=== PATIENT | male | born 1950 ===

== ENCOUNTER 2017-07-28 14:13 | Observation (INO) ==
[2017-07-28] MEDS ORDERED: MAGNESIUM SULF RIDER 4 GM in PREMIX 1 EACH IV PRN (15:11)
[2017-07-28] MEDS ORDERED: ZALEPLON 5 MG CAPSULE PO PRN (15:11)
[2017-07-28] MEDS ORDERED: ACETAMINOPHEN 325 MG TABLET PO PRN (15:11)
[2017-07-28] MEDS ORDERED: DOCUSATE SODIUM 100 MG CAPSULE PO PRN (15:11)
[2017-07-28] MEDS ORDERED: POTASSIUM CHLORIDE 20 MEQ TABLET PO PRN (15:11)
[2017-07-28] MEDS ORDERED: ONDANSETRON 4 MG/2 ML VIAL IV PRN (15:11)
[2017-07-28] MEDS ORDERED: MAGNESIUM SULF RIDER 2 GM in PREMIX 1 EACH IV PRN (15:11)
--- NOTE | 2017-07-28 17:23 | Cardiology History & Physical ---
Assessment and Plan - Time spent with patient Time spent with patient: Greater than 30 minutes (1) LV (left ventricular) mural thrombus Status: Acute Assessment and plan: SEE PLAN OF CARE LISTED BELOW. Current Visit: Yes (2) Nonischemic cardiomyopathy Status: Chronic Assessment and plan: SEE PLAN OF CARE LISTED BELOW. Current Visit: Yes (3) History of congestive heart failure Status: Chronic Assessment and plan: SEE PLAN OF CARE LISTED BELOW. Current Visit: No (4) History of pulmonary embolus (PE) Status: Chronic Assessment and plan: SEE PLAN OF CARE LISTED BELOW. Current Visit: No (5) History of DVT (deep vein thrombosis) Status: Chronic Assessment and plan: SEE PLAN OF CARE LISTED BELOW. Current Visit: No (6) History of TIA (transient ischemic attack) Status: Resolved Assessment and plan: SEE PLAN OF CARE LISTED BELOW. Current Visit: No (7) Former smoker Status: Resolved Assessment and plan: SEE PLAN OF CARE LISTED BELOW. Current Visit: No (8) Dyslipidemia Status: Chronic Assessment and plan: SEE PLAN OF CARE LISTED BELOW. Current Visit: Yes (9) Diabetes mellitus Status: Chronic Assessment and plan: SEE PLAN OF CARE LISTED BELOW. Current Visit: Yes (10) Hypertension Status: Chronic Assessment and plan: SEE PLAN OF CARE LISTED BELOW. Current Visit: No History of Present Illness Chief complaint: Left ventricular thrombus History of present illness: Skilled Labor: Dr. Dodd PCP: [facility] Mr. Mccann is a 67 year old male without history of coronary artery disease, routinely followed by Dr. Dodd. Patient has cardiac risk factors significant for diabetes, hypertension, dyslipidemia, sedentary lifestyle and former smoker. He has a past medical history of nonischemic cardiomyopathy ( ejection fraction 20%). Heart catheterization was performed in 2010, which did not reveal any evidence of significant fixed coronary obstruction. Ischemic cardiomyopathy was diagnosed at that time with ejection fraction of 15%. Patient's most recent echocardiogram was performed October 2016 which revealed improved EF of 20%. Patient has refused ICD placement. Patient was directly admitted to our facility from [facility] this afternoon for incidental finding of LV thrombus on echocardiogram. Per patient report, he was hospitalized at [facility] for acute on chronic CHF exacerbation. His congestive heart failure pills to be well compensated at this time. He reports that he was diuresed well and his breathing is now back to baseline. He denies any chest pain, heaviness or tightness. Denies fever, chills, cough, abdominal pain, nausea, vomiting, melena dyspnea, orthopnea, PND , lower extremity swelling and AGUILA. Patient has been admitted under cardiology service. Patient housed on the telemetry unit. Patient was seen and examined on the telemetry unit. He is without complaints. Denies chest pain, heaviness and tightness. Labs are pending. Chronicity of patient's LV thrombus is unknown at this time. Echocardiogram has been ordered. There is no evidence of LV thrombus on patient's last echocardiogram October 2016. Echocardiogram will be repeated this hospitalization. Patient received therapeutic dose of Lovenox at [facility]. Will await echocardiogram results and make further recommendations at that time. Further plan and addendum to follow per Dr. Helton. ASSESSMENT/PLAN 1. LV THROMBUS- Chronicity of this is unknown. There is no evidence of LV thrombus on patient's last echocardiogram October 2016. Echocardiogram will be repeated this hospitalization. Patient received therapeutic dose of Lovenox at [facility]. Will await echocardiogram results and make further recommendations at that time. 2. NONISCHEMIC CARDIOMYOPATHY - Most recent ejection fraction 20% in October 2016 per echocardiogram. Patient has refused ICD placement. 3. HISTORY OF CONGESTIVE HEART FAILURE - Patient appears to be well compensated at this time. Continue current plan of care. Chest x-ray in the morning. 4. HISTORY OF PULMONARY EMBOLISM - Clinically stable. Can consider switching Blood thinner from Plavix to NOAC like Eliquis as this will provide better stroke prevention as well as DVT and PE prophylaxis. 5. HISTORY OF DVT - Clinically stable. Can consider switching Blood thinner from Plavix to NOAC like Eliquis as this will provide better stroke prevention as well as DVT and PE prophylaxis. 6. HYPERTENSION - Under well control. Will continue patient's home medications when they are verified by nursing staff. 7. DIABETES - Sliding still insulin has been initiated. Accu-Cheks before meals and at bedtime. 8. DYSLIPIDEMIA - Continue lipid-lowering agent. Lipid panel in the morning. 9. FORMER SMOKER - Reports that he quit approximately 1 year ago. 10. HISTORY OF TIA - Continue ASA and Plavix Home Medications Medication Instructions Recorded Confirmed Type Carvedilol [Coreg] 3.125 mg PO BID tablet 07/06/15 08/27/16 Rx Clopidogrel [Plavix] 75 mg PO DAILY #30 tablet 07/06/15 08/27/16 Rx Aspirin [Ecotrin] 81 mg PO DAILY 08/02/16 08/27/16 History Furosemide [Furosemide] 1 tablet PO DAILY 08/08/16 08/27/16 History Simvastatin 20 mg PO DAILY 08/08/16 08/27/16 History glipiZIDE [Glipizide] 1 tablet PO BID 08/08/16 08/27/16 History Albuterol Sulfate [Albuterol Neb] 2.5 mg RESP TX Q4H PRN 08/27/16 08/27/16 History Allergies Allergy/AdvReac Type Severity Reaction Status Date / Time No Known Allergies Allergy Verified 07/04/15 16:33 - Constitutional Constitutional: Present: as per HPI. Absent: chills, fatigue, fever(s), lethargy, malaise, weakness - Cardiovascular Cardiovascular: Present: as per HPI. Absent: chest pain at rest, chest pain with activity, claudication, diaphoresis, dyspnea, dyspnea on exertion, edema, radiating jaw, neck or arm pain, orthopnea, palpitations, PND - Respiratory Respiratory: Present: as per HPI. Absent: cough, dyspnea, hemoptysis, dyspnea on exertion, wheezing, pain on inspiration, change in phlegm color - Gastrointestinal Gastrointestinal: Present: as per HPI. Absent: abdominal pain, coffee ground emesis, heartburn, hematemesis, hematochezia, melena, nausea, vomiting - Neurological Neurological: Present: as per HPI. Absent: abnormal gait, abnormal speech, behavioral changes, dizziness, frequent falls, numbness, syncope Medical,Surgical,& Family Hx - Medical History Cardio: History of: CHF, Hypertension, Cardiovascular Problems (Cardiomyopathy) Neurology: History of: Seizures, TIA HEENT: History of: Eye Problem (left eye slightly blind) Endocrine: History of: Diabetes Mellitus (NIDDM), Dyslipidemia Respiratory: History of: Pulmonary Embolism - Surgical History Cardiac Surgeries: Sugical HX of: Cardiac Catheterization (Dr. Dodd - Last visit 1 year ago- Negative workup) - Family History Family History: Reports;: Family Cancer (Mother), Family Diabetes (Sister), Family Heart Disease, Family Hypertension (Sister), Family Stroke - Social History Smoking Status: Former smoker Frequency of Alcohol Use: None Type of Drug Use: None Lives With:: Alone Functional capacity: independent ambulation Cardiology Physical Exam - Constitutional Vitals: Vital Signs Pulse Resp BP Pulse Ox 72 18 144/75 99 07/28/17 16:30 07/28/17 16:30 07/28/17 16:30 07/28/17 16:30 Intake and Output 07/28/17 07/28/17 07/28/17 06:59 14:59 22:59 Other: Weight 214 lb Patient Weight 07/29/17 06:59 Weight 214 lb Exam: General: Appears well with no apparent distress. Pleasant and cooperative. Appears comfortable. HEENT: PERRL, normocephalic, atraumatic. Mucous membranes moist. No jaundice noted. Conjunctiva moist and clear, sclerae anicteric Neck: No JVD/HJR, no thyromegaly or lymphadenopathy noted. Cardiac: Regular rate and rhythm. No murmur rub or gallop. Lungs: Mostly clear. Not requiring oxygen. Abdomen: Soft, bowel sounds normoactive. Nontender and nondistended. No abdominal bruit or thrill noted. No masses noted. Extremities: No clubbing, cyanosis noted. No edema noted. Upper extremity pulses 2+. Lower extremity pulses 2+. Capillary refill less than 3 seconds. Skin: No unusual lesions or rashes. No skin breakdown appreciated. Neuro: Awake, alert and oriented 3. Moves all extremities well without hemiparesis or paralysis. No essential tremor is appreciated. Result/EKG - Labs Lab Results: I have reviewed the past 24 hour labs Labs: Laboratory Results - last 24 hr 07/28/17 16:47 POC Glucose 161 H
[2017-07-28] MEDS: ALBUTEROL 2.5 MG/3 ML NEB RESP TX SCH ×3 (18:27→23:39)
--- NOTE | 2017-07-28 20:18 | XRay Report ---
XR chest 2V Indication: Shortness of breath. Comparison: Chest x-ray 03/20/2016. Technique: PA and lateral chest x-ray was performed. Findings: Bilaterally within the lung bases, coarsened reticular interstitial markings are noted with superimposed airspace opacities which are asymmetrically more prominent within the left lung base. Additionally there is a nodular focus of density in the right midlung that could reflect superimposed pulmonary nodule. Heart size is borderline. Bones and soft tissues demonstrate no significant interval change. Impression: 1. The asymmetry of the lung bases suggest atelectasis and/or infectious process. Asymmetric pulmonary edema is not excluded. 2. Pulmonary nodule possibly cavitary within the right mid lung is not excluded. Follow-up is recommended. CT could be considered for further characterization. 07/28/2017 8:12 PM PROCEDURE INTERPRETED AT [facility] DEPARTMENT OF RADIOLOGY Final Report Signed by: Dr. Duane Park
[2017-07-28] MEDS: CARVEDILOL 3.125 MG TABLET PO SCH (21:45)
[2017-07-28] MEDS: INSULIN REGULAR 100 UNIT/ML SUBCUT SCH (21:46)
[2017-07-29] MEDS: ALBUTEROL 2.5 MG/3 ML NEB RESP TX SCH ×3 (04:07→10:44)
[2017-07-29 05:07] LABS: Basophils % 0.5 % (0.0-0.8); Eosinophils # 0.2 10*3/uL (0.0-0.87); Eosinophils % 3.5 % (0.00-10.9); Hematocrit 35.6 VOL% (42.0-52.0); Hemoglobin 12.2 GM/DL (14.0-18.0); Immature Granulocytes % 0.2 %; Immature Granulocytes Absolute 0.01 #; Lymphocytes # 0.9 10*3/uL (1.4-4.0); Lymphocytes % 16.3 % (21.2-54.2); Mean Corpuscular HGB Conc 34.3 GM/DL (32-36); Mean Corpuscular Hemoglobin 30 PG (27-34); Mean Corpuscular Volume 88.1 FL (87-102); Monocytes # 0.7 10*3/uL (0.11-0.8); Monocytes % 11.9 % (1.7-12.7); Neutrophils # 3.8 10*3/uL (1.4-7.4); Neutrophils % 67.6 % (38.7-73.9); Platelet Count 192 T/CUMM (130-400); Red Blood Count 4.04 MC/CUMM (3.8-5.5); Red Cell Distribution Width 12.6 % (9.3-17.3); White Blood Count 5.7 T/CUMM (4-12)
[2017-07-29 05:41] LABS: Albumin 2.6 G/DL (3.4-5.0); Bilirubin,Total 0.5 MG/DL (0.2-1.0); Osmolality,Calculated 289.1 MOS/KG (273-304); Potassium 4.5 MMOL/L (3.5-5.1); Risk Ratio 6.26; Total Protein 5.9 G/DL (6.4-8.3)
[2017-07-29 06:08] LABS: Calcium 8.2 MG/DL (8.5-10.1); Magnesium 2.5 MG/DL (1.8-2.4); Potassium 4.5 MMOL/L (3.5-5.1)
--- NOTE | 2017-07-29 08:01 | EKG Report ---
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
[2017-07-29] MEDS: INSULIN REGULAR 100 UNIT/ML SUBCUT SCH ×2 (08:43→12:53)
[2017-07-29] MEDS ORDERED: ASPIRIN EC 81 MG TABLET PO SCH (09:00)
[2017-07-29] MEDS ORDERED: CLOPIDOGREL 75 MG TABLET PO SCH (09:00)
[2017-07-29] MEDS ORDERED: FUROSEMIDE 40 MG TABLET PO SCH (09:00)
[2017-07-29] MEDS ORDERED: PANTOPRAZOLE 40 MG TABLET PO SCH (09:00)
[2017-07-29] MEDS: CARVEDILOL 3.125 MG TABLET PO SCH (09:12)
--- NOTE | 2017-07-29 09:12 | ECHO Report ---
Gagan Mccann Exam Date: 07/29/2017 07:35 Referring Physician: Technologist: Age: 67 Ht (in): Wt (lb): Gender: M Exam Location: [facility] Echo Indications: BP: / HR: Rhythm: Sinus Technical Quality: Good IMPRESSIONS Mildly dilated severe cardiomyopathy with ejection fraction estimated at 20%. There is global hypokinesis. In some views there is a slight irregularity at the apex and I cannot completely exclude the possibility of left ventricular apical thrombus. Other views show what appears to be a normal left ventricular apex. I reviewed his previous echo from approximately 1 year ago and it has a similar appearance. I do not think this represents a true thrombus, and if it does it appears to be chronic. There is mild left atrial enlargement. Trace mitral regurgitation. Mild aortic insufficiency. Mild tricuspid regurgitation. MEASUREMENTS (Male / Female) Normal Values 2D ECHO LV Diastolic Diameter PLAX 6.1 cm 4.2 - 5.9 / 3.9 - 5.3 cm LV Systolic Diameter PLAX 5.9 cm LV Fractional Shortening PLAX 2.9 % IVS Diastolic Thickness 1.3 cm 0.6 - 1.0 / 0.6 - 0.9 cm LVPW Diastolic Thickness 1.3 cm 0.6 - 1.0 / 0.6 - 0.9 cm RV Internal Dim ED PLAX 3.3 cm Aortic Root Diameter 3.3 cm LA Systolic Diameter LX 4.3 cm 3.0 - 4.0 / 2.7 - 3.8 cm DOPPLER TR Peak Velocity 400.0 cm/s TR Peak Gradient 64.0 mmHg FINDINGS Left Ventricle The left ventricle is mildly dilated with a severely reduced ejection fraction estimated at 20%. There is severe global hypokinesis. In some views there is a slight irregularity at the apex and I cannot completely exclude the possibility of left ventricular apical thrombus. Other views show what appears to be a normal left ventricular apex. I reviewed his previous echo from approximately 1 year ago and it has a similar appearance. I do not think this represents a true thrombus, and if it does it appears to be chronic. Right Ventricle Normal right ventricular size and function. Right Atrium Normal right atrial size and function. Left Atrium There is mild left atrial enlargement. Mitral Valve There is mild mitral leaflet thickening with trace mitral regurgitation. Aortic Valve Mild aortic insufficiency. Tricuspid Valve Structurally normal tricuspid valve. Mild tricuspid regurgitation. Pulmonic Valve Pericardium Normal pericardium. Aorta Not well visualized. Dylan Helton (Electronically Signed) Final Date: 29 July 2017 09:11
--- NOTE | 2017-07-29 10:26 | Discharge Summary ---
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 Dodd PCP: [facility] Mr. Mccann is a 67 year old male without history of coronary artery disease, routinely followed by Dr. Dodd. Patient has cardiac risk factors significant for diabetes, hypertension, dyslipidemia, sedentary lifestyle and former smoker. He has a past medical history of nonischemic cardiomyopathy ( ejection fraction 20%). Heart catheterization was performed in 2010, which did not reveal any evidence of significant fixed coronary obstruction. Ischemic cardiomyopathy was diagnosed at that time with ejection fraction of 15%. Patient's most recent echocardiogram was performed October 2016 which revealed improved EF of 20%. Patient has refused ICD placement. Patient was directly admitted to our facility from [facility] for suspected LV apical thrombus. Patient asymptomatic. Echocardiogram was repeated at our facility. The study was read by Dr. Dylan Helton. It is hard to say whether or not patient has LV apical thrombus on echocardiogram. In some views there is a slight irregularity at the apex and the possibility of left ventricular apical thrombus cannot completely be excluded. However, in other views it appears to be a normal left ventricular apex. When compared to previous echocardiogram one year ago there is no change. At this point, a true thrombus is not suspected. However, if it is in fact present it appears to be chronic. Patient's echocardiogram demonstrated severe cardiomyopathy with ejection fraction at 20%. Global hypokinesis noted. Patient has declined ICD placement again this hospitalization. No overt heart failure this hospitalization, patient is well compensated. Given patient's severe cardiomyopathy, history of pulmonary embolism, history of TIA and history of DVT I think it is reasonable to switch patient from Plavix to Eliquis in order to provide better stroke prevention as well as DVT and PE prophylaxis. This will also treat LV thrombus if it is in fact present. 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 He verbalizes understanding. He is anxious for discharge home. Having felt that he has met maximal medical therapy, he will be discharged home in stable condition. He has been given a follow-up appoint with Dr. Dodd in 1 month with EKG, CBC and BMP. Chest x-ray was performed this hospitalization which revealed pulmonary nodule. Possibly cavitary within the right mid lung cannot excluded. Follow-up is recommended per radiologist. CT can be considered as an outpatient. Patient is asymptomatic. Patient has been given a follow-up appoint with Dr. Brand in 1- 2 weeks. I will defer further management/workup of this to him. Patient will be discharged home with his preadmission home medications with the exception of switching from Plavix to Eliquis. Also, patient simvastatin was increased as LDL was not at goal. Patient will need lipid panel in 4-6 weeks. Patient verbalizes understanding of this. Patient verbalizes understanding of his discharge instructions and discharge medications. - Time spent with patient Time with patient DS: Greater than 30 minutes Diagnosis - Discharge Diagnosis (1) LV (left ventricular) mural thrombus Status: Suspected (2) Nonischemic cardiomyopathy Status: Chronic (3) History of congestive heart failure Status: Chronic (4) History of pulmonary embolus (PE) Status: Chronic (5) History of DVT (deep vein thrombosis) Status: Chronic (6) History of TIA (transient ischemic attack) Status: Chronic (7) Former smoker Status: Resolved (8) Dyslipidemia Status: Chronic (9) Diabetes mellitus Status: Chronic (10) Hypertension Status: Chronic Specialty Discharge - Follow Up or Referrals Follow up with: Marc Dodd MD [Physician] - 1 Month (EKG, BMP AND CBC) Juan Alba MD [Physician] - (Follow-up in 1-2 weeks. Pulmonary nodule noted on chest x-ray. Will defer to Dr. Alba whether patient will need CT chest.) Discharge Plan - Discharge Data Disposition: Disch To Home/Self Care Condition at Discharge: Stable Discharge Diet: heart healthy, low fat, low cholesterol, low salt diet Activity: resume usual activities as tolerated Hygiene: no restrictions Weight Bearing at Discharge: full weight bearing Driving: not until seen by doctor Contact your physician if you experience:: fever over 101, Difficulty voiding, Redness or swelling, Nausea/Vomiting, Shortness of breath, pain uncontrolled by pain medications - Discharge Medications New Carvedilol [Coreg] 3.125 mg PO BID #60 tablet Simvastatin [Zocor] 40 mg PO BEDTIME #30 tablet Apixaban [Eliquis] 5 mg PO BID #60 tablet Continue Aspirin [Ecotrin] 81 mg PO DAILY glipiZIDE [Glipizide] 5 mg PO BID Furosemide 20 mg PO BID Albuterol Sulfate [Albuterol Neb] 2 puffs INH Q4H PRN PRN Reason: Shortness Of Breath/Wheezing Spironolactone [Aldactone] 25 mg PO DAILY Ranitidine Tab [Zantac Tab] 150 mg PO BEDTIME Acetaminophen Tab [Tylenol Tab] 650 mg PO Q6H PRN PRN Reason: Pain Mild (1-3) And/Or Fever Lisinopril 10 mg PO DAILY hydrALAZINE TAB [Apresoline Tab] 50 mg PO BID Potassium Chloride Cap/Tab [K Dur] 10 meq PO BID Insulin Detemir [Levemir] 20 unit SUBCUT BEDTIME Discontinued Carvedilol [Coreg] 3.125 mg PO BID tablet Clopidogrel [Plavix] 75 mg PO DAILY #30 tablet Simvastatin 40 mg PO BEDTIME - Follow Up or Referral Follow Up: Marc Dodd MD [Physician] - 2 Weeks (EKG, BMP AND CBC) - Forms/Instructions Forms: Acute Care Work/School Release Exam - Constitutional Vitals: Period Temp Pulse Resp BP Sys/Lacey Pulse Ox Last 24 Hr 97.6 F-98.2 F 64-92 16-20 122-185/62-89 94-100 Exam: General: Appears well with no apparent distress. Pleasant and cooperative. Appears comfortable. HEENT: PERRL, normocephalic, atraumatic. Mucous membranes moist. No jaundice noted. Conjunctiva moist and clear, sclerae anicteric Neck: No JVD/HJR, no thyromegaly or lymphadenopathy noted. Cardiac: Regular rate and rhythm. No murmur rub or gallop. Lungs: Mostly clear. Not requiring oxygen. Abdomen: Soft, bowel sounds normoactive. Nontender and nondistended. No abdominal bruit or thrill noted. No masses noted. Extremities: No clubbing, cyanosis noted. No edema noted. Upper extremity pulses 2+. Lower extremity pulses 2+. Capillary refill less than 3 seconds. Skin: No unusual lesions or rashes. No skin breakdown appreciated. Neuro: Awake, alert and oriented 3. Moves all extremities well without hemiparesis or paralysis. No essential tremor is appreciated. Discharge Results Procedures and tests throughout hospitalization: Pending Orders 07/30/17 04:00 BMP w/ Mg [Basic Metabolic Panel w/Mg] IN AM CBC [Comp Blood Count Auto Diff] IN AM 07/31/17 04:00 BMP w/ Mg [Basic Metabolic Panel w/Mg] IN AM CBC [Comp Blood Count Auto Diff] IN AM 08/01/17 04:00 BMP w/ Mg [Basic Metabolic Panel w/Mg] IN AM CBC [Comp Blood Count Auto Diff] IN AM Labs on day of discharge: Labs from last 24 hours 07/29/17 07/29/17 07/29/17 08:16 04:00 04:00 WBC RBC Hgb Hct MCV MCH MCHC RDW Plt Count MPV Neut % (Auto) Lymph % (Auto) Garland % (Auto) Eos % (Auto) Baso % (Auto) Neut # (Auto) Lymph # (Auto) Garland # (Auto) Eos # (Auto) Baso # (Auto) Immature Gran % Nucleated RBC % Immature Gran # Nucleated RBCs # Immature Plt Fraction Sodium 143 142 Potassium 4.5 4.5 Chloride 109 H 108 H Carbon Dioxide 31 28 Anion Gap 7.5 10.5 BUN 25 H 23 H Creatinine 1.40 H 1.30 GFR Calculation 65 71 BUN/Creatinine Ratio 17.00 17.00 Glucose 156 H 153 H POC Glucose 150 H Calculated Osmolality 291.0 289.1 Calcium 8.2 L 8.0 L Magnesium 2.5 H Total Bilirubin 0.50 AST 23 ALT 25 Alkaline Phosphatase 93 Total Protein 5.9 L Albumin 2.6 L Globulin 3.3 Albumin/Globulin Ratio 0.7 L Triglycerides 155 H Cholesterol 169 LDL Cholesterol 111.0 VLDL Cholesterol 31.0 HDL Cholesterol 27 L Heart Disease Risk Ratio 6.26 Free T4 TSH 3rd Generation 07/29/17 07/28/17 07/28/17 04:00 19:45 17:01 WBC 5.7 RBC 4.04 Hgb 12.2 L Hct 35.6 L MCV 88.1 MCH 30 MCHC 34.3 RDW 12.6 Plt Count 192 MPV 11.0 Neut % (Auto) 67.6 Lymph % (Auto) 16.3 L Garland % (Auto) 11.9 Eos % (Auto) 3.5 Baso % (Auto) 0.5 Neut # (Auto) 3.8 Lymph # (Auto) 0.9 L Garland # (Auto) 0.7 Eos # (Auto) 0.2 Baso # (Auto) 0.0 Immature Gran % 0.2 Nucleated RBC % 0.0 Immature Gran # 0.01 Nucleated RBCs # 0.00 Immature Plt Fraction 0.0 Sodium Potassium Chloride Carbon Dioxide Anion Gap BUN Creatinine GFR Calculation BUN/Creatinine Ratio Glucose POC Glucose 167 H Calculated Osmolality Calcium Magnesium Total Bilirubin AST ALT Alkaline Phosphatase Total Protein Albumin Globulin Albumin/Globulin Ratio Triglycerides Cholesterol LDL Cholesterol VLDL Cholesterol HDL Cholesterol Heart Disease Risk Ratio Free T4 TSH 3rd Generation 1.380 07/28/17 07/28/17 17:01 16:47 WBC RBC Hgb Hct MCV MCH MCHC RDW Plt Count MPV Neut % (Auto) Lymph % (Auto) Garland % (Auto) Eos % (Auto) Baso % (Auto) Neut # (Auto) Lymph # (Auto) Garland # (Auto) Eos # (Auto) Baso # (Auto) Immature Gran % Nucleated RBC % Immature Gran # Nucleated RBCs # Immature Plt Fraction Sodium Potassium Chloride Carbon Dioxide Anion Gap BUN Creatinine GFR Calculation BUN/Creatinine Ratio Glucose POC Glucose 161 H Calculated Osmolality Calcium Magnesium Total Bilirubin AST ALT Alkaline Phosphatase Total Protein Albumin Globulin Albumin/Globulin Ratio Triglycerides Cholesterol LDL Cholesterol VLDL Cholesterol HDL Cholesterol Heart Disease Risk Ratio Free T4 1.02 TSH 3rd Generation - Imaging and Cardiology Procedure: Ultrasound: report reviewed by me, X-ray: report reviewed by me DS: Provider Date of admission: 07/28/17 15:11 Primary care physician: Monico Guzman MD Attending physician on admission: Dylan Helton MD Discharging clinician: Macey Segura NP
[2017-07-29 12:28] VITALS: BP 136/67
[2017-07-29] MEDS ORDERED: POTASSIUM CHLORIDE 10 MEQ TABLET PO SCH (21:00)
[2017-07-29] MEDS ORDERED: SIMVASTATIN 20 MG TABLET PO SCH ×2 (21:00)
[2017-07-29] MEDS ORDERED: glipiZIDE 5 MG TABLET PO SCH (21:00)
[2017-07-29] MEDS ORDERED: INSULIN GLARGINE 100 UNIT/ML SUBCUT SCH (21:00)
[2017-07-29] MEDS ORDERED: SIMVASTATIN 40 MG TABLET PO SCH (21:00)
[2017-07-29] MEDS ORDERED: FAMOTIDINE 20 MG TABLET PO SCH (21:00)
[2017-07-29] MEDS ORDERED: APIXABAN 5 MG TABLET PO SCH (21:00)
[2017-07-30] MEDS ORDERED: SPIRONOLACTONE 25 MG TABLET PO SCH (09:00)
[2017-07-30] MEDS ORDERED: LISINOPRIL 10 MG TABLET PO SCH (09:00)
== END 2017-07-29 12:52 | disposition home or self-care (01) ==
LOC: INTOOBSV 15:11 → N.TELEN 16:21
PROVIDERS: ADMIT Internal Medicine Cardiovascular Disease; ATTEND Internal Medicine Cardiovascular Disease

== ENCOUNTER 2019-07-26 12:07 | Observation (INO) ==
[2019-07-26] MEDS ORDERED: ONDANSETRON 4 MG/2 ML VIAL IV PRN (14:48)
[2019-07-26] MEDS ORDERED: GLUCAGON 1 MG VIAL IM PRN (14:51)
[2019-07-26] MEDS ORDERED: DEXTROSE 50% 25 GM/50 ML VIAL IV PRN (14:51)
[2019-07-26 16:05] LABS: Basophils % 0.2 % (0.0-0.8); Eosinophils # 0.2 10*3/uL (0.0-0.87); Eosinophils % 1.9 % (0.00-10.9); Hematocrit 29.7 VOL% (42.0-52.0); Hemoglobin 9.1 GM/DL (14.0-18.0); Immature Granulocytes % 0.3 %; Immature Granulocytes Absolute 0.03 #; Lymphocytes % 10.4 % (21.2-54.2); Mean Corpuscular HGB Conc 30.6 GM/DL (32-36); Mean Corpuscular Volume 94.9 FL (87-102); Mean Platelet Volume 10.5 FL (9.6-12.0); Monocytes % 8.5 % (1.7-12.7); Neutrophils % 78.7 % (38.7-73.9); Platelet Count 159 T/CUMM (130-400); Red Blood Count 3.13 MC/CUMM (3.8-5.5); Red Cell Distribution Width 13.6 % (9.3-17.3); White Blood Count 9.5 T/CUMM (4-12)
[2019-07-26 16:23] LABS: Albumin 2.7 G/DL (3.4-5.0); Bilirubin,Total 0.7 MG/DL (0.2-1.0); Calcium 7.7 MG/DL (8.5-10.1); Osmolality,Calculated 293.8 MOS/KG (273-304); Total Protein 6.6 G/DL (6.4-8.3)
[2019-07-26] MEDS ORDERED: ALBUTEROL/IPRATROPIUM 3 ML NEB RESP TX PRN (16:42)
[2019-07-26 16:48] LABS: Apearance,Urine CLEAR (Clear); Bacteria,Urine Occasional /HPF (Few); Bilirubin,Urine Negative (Negative); Blood, Urine Negative (Negative); Glucose,Urine (UA) Negative (Negative); Hyaline Casts,Urine 18 /LPF (0-3); Ketones,Urine Negative (Negative); Mucus,Urine Occasional /LPF (Occasional); Nitrite,Urine Negative (Negative); Protein,Urine 100 MG/DL; RBC,Urine 2 /HPF (0-4); Squamous Epithelial Cell,Urine Occasional /HPF (0-10); Urine Color Yellow (Yellow); Urine Specific Gravity 1.012 (1.001-1.035); Urine Urobilinogen < 2.0 EU/DL (0.2-1.0); WBC,Urine 1 /HPF (0-6)
[2019-07-26] MEDS ORDERED: guaiFENesin 200 MG/10 ML UDCUP PO PRN (16:55)
[2019-07-26] MEDS: INSULIN LISPRO 100 UNIT/ML SUBCUT SCH ×2 (17:32→20:16)
[2019-07-26] MEDS: APIXABAN 5 MG TABLET PO SCH (20:16)
[2019-07-26] MEDS: POTASSIUM CHLORIDE 10 MEQ TABLET PO SCH (20:16)
[2019-07-26] MEDS: ACETAMINOPHEN 325 MG TABLET PO PRN (20:16)
[2019-07-26] MEDS: CARVEDILOL 6.25 MG TABLET PO SCH (20:16)
[2019-07-26] MEDS: SIMVASTATIN 40 MG TABLET PO SCH (20:16)
[2019-07-27 05:30] LABS: Basophils % 0.3 % (0.0-0.8); Eosinophils # 0.2 10*3/uL (0.0-0.87); Eosinophils % 3.3 % (0.00-10.9); Hematocrit 28.3 VOL% (42.0-52.0); Immature Granulocytes % 0.3 %; Immature Granulocytes Absolute 0.02 #; Mean Corpuscular HGB Conc 31.8 GM/DL (32-36); Mean Platelet Volume 10.8 FL (9.6-12.0); Monocytes % 11.5 % (1.7-12.7); Neutrophils % 69.6 % (38.7-73.9); Platelet Count 142 T/CUMM (130-400); Red Blood Count 3.01 MC/CUMM (3.8-5.5); Red Cell Distribution Width 13.9 % (9.3-17.3); White Blood Count 6.5 T/CUMM (4-12)
[2019-07-27 06:09] LABS: Albumin 2.6 G/DL (3.4-5.0); Bilirubin,Total 0.6 MG/DL (0.2-1.0); Calcium 7.9 MG/DL (8.5-10.1); Osmolality,Calculated 293.8 MOS/KG (273-304); Risk Ratio 2.74; Thyroid Stimulating Hormone 1.35 uIU/ml (0.358-3.74); Total Protein 6.4 G/DL (6.4-8.3); VLDL CHOLESTEROL 11.2 MG/DL
[2019-07-27] MEDS: PANTOPRAZOLE 40 MG TABLET PO SCH (08:31)
[2019-07-27] MEDS: LISINOPRIL 10 MG TABLET PO SCH (08:31)
[2019-07-27] MEDS: CARVEDILOL 6.25 MG TABLET PO SCH ×2 (08:31→16:14)
[2019-07-27] MEDS: SPIRONOLACTONE 25 MG TABLET PO SCH (08:31)
[2019-07-27] MEDS: prednisoLONE 15 MG/5 ML ORAL.SYR PO SCH (08:32)
[2019-07-27] MEDS: FUROSEMIDE 20 MG/2 ML VIAL IV SCH (08:33)
[2019-07-27] MEDS: APIXABAN 5 MG TABLET PO SCH ×2 (08:47→21:28)
[2019-07-27] MEDS: POTASSIUM CHLORIDE 10 MEQ TABLET PO SCH ×2 (08:47→21:28)
[2019-07-27] MEDS: INSULIN LISPRO 100 UNIT/ML SUBCUT SCH ×4 (10:25→21:34)
[2019-07-27] MEDS: POLYETHYLENE GLYCOL POWDER 17 GM PACK PO SCH (10:25)
[2019-07-27] MEDS: ALBUTEROL/IPRATROPIUM 3 ML NEB RESP TX SCH ×3 (11:10→19:20)
[2019-07-27] MEDS ORDERED: MAGNESIUM HYDROXIDE SUSP 30 ML UDCUP PO ONE (14:00)
[2019-07-27] MEDS: SIMVASTATIN 40 MG TABLET PO SCH (21:28)
[2019-07-27] MEDS: DOCUSATE SODIUM 100 MG CAPSULE PO SCH (21:28)
[2019-07-27] MEDS: ACETAMINOPHEN 325 MG TABLET PO PRN (21:39)
[2019-07-28] MEDS: ALBUTEROL/IPRATROPIUM 3 ML NEB RESP TX SCH ×4 (00:08→11:15)
[2019-07-28 05:46] LABS: Basophils % 0.3 % (0.0-0.8); Eosinophils # 0.2 10*3/uL (0.0-0.87); Eosinophils % 2.9 % (0.00-10.9); Hematocrit 27.4 VOL% (42.0-52.0); Immature Granulocytes % 0.3 %; Immature Granulocytes Absolute 0.02 #; Lymphocytes # 1.1 10*3/uL (1.4-4.0); Lymphocytes % 18.1 % (21.2-54.2); Mean Corpuscular HGB Conc 32.8 GM/DL (32-36); Mean Corpuscular Volume 93.5 FL (87-102); Mean Platelet Volume 10.5 FL (9.6-12.0); Monocytes % 10.7 % (1.7-12.7); Neutrophils % 67.7 % (38.7-73.9); Platelet Count 145 T/CUMM (130-400); Red Blood Count 2.93 MC/CUMM (3.8-5.5); Red Cell Distribution Width 13.6 % (9.3-17.3); White Blood Count 5.8 T/CUMM (4-12)
[2019-07-28 05:57] LABS: Albumin 2.7 G/DL (3.4-5.0); Bilirubin,Total 0.4 MG/DL (0.2-1.0); Calcium 7.8 MG/DL (8.5-10.1); Osmolality,Calculated 296.7 MOS/KG (273-304); Total Protein 6.5 G/DL (6.4-8.3)
[2019-07-28] MEDS: LISINOPRIL 10 MG TABLET PO SCH (08:27)
[2019-07-28] MEDS: prednisoLONE 15 MG/5 ML ORAL.SYR PO SCH (08:27)
[2019-07-28] MEDS: APIXABAN 5 MG TABLET PO SCH (08:27)
[2019-07-28] MEDS: POTASSIUM CHLORIDE 10 MEQ TABLET PO SCH (08:27)
[2019-07-28] MEDS: SPIRONOLACTONE 25 MG TABLET PO SCH (08:27)
[2019-07-28] MEDS: DOCUSATE SODIUM 100 MG CAPSULE PO SCH (08:27)
[2019-07-28] MEDS: CARVEDILOL 6.25 MG TABLET PO SCH (08:27)
[2019-07-28] MEDS: PANTOPRAZOLE 40 MG TABLET PO SCH (08:27)
[2019-07-28] MEDS: FUROSEMIDE 20 MG/2 ML VIAL IV SCH (08:28)
[2019-07-28] MEDS: POLYETHYLENE GLYCOL POWDER 17 GM PACK PO SCH (08:28)
[2019-07-28] MEDS: INSULIN LISPRO 100 UNIT/ML SUBCUT SCH ×2 (08:28→12:51)
[2019-07-28 11:46] VITALS: BP 144/69
[2019-08-02] MEDS ORDERED: ERGOCALCIFEROL 50,000 UNIT CAPSULE PO SCH (09:00)
== END 2019-07-28 14:57 | disposition home or self-care (01) | DRG 206 ==
LOC: N.2E → SUATTDRO 14:09 → OBSVTOIN 14:09 → INTOOBSV 14:09
PROVIDERS: ADMIT Internal Medicine; ATTEND Internal Medicine

== ENCOUNTER 2019-08-16 21:14 | Inpatient (IN) ==
[2019-08-17] MEDS ORDERED: ONDANSETRON 4 MG/2 ML VIAL IV PRN (01:36)
[2019-08-17] MEDS ORDERED: GLUCAGON 1 MG VIAL IM PRN (01:36)
[2019-08-17] MEDS ORDERED: DEXTROSE 50% 25 GM/50 ML VIAL IV PRN (01:36)
[2019-08-17] MEDS: ACETAMINOPHEN 325 MG TABLET PO PRN ×3 (01:45→22:08)
[2019-08-17] MEDS ORDERED: PNEUMOCOCCAL VACCINE (13 VALENT) 0.5 ML SYRINGE IM ONE (05:03)
[2019-08-17] MEDS ORDERED: INFLUENZA VIRUS VACCINE 0.5 ML SYRINGE IM ONE (05:05)
[2019-08-17 05:35] LABS: Basophils % 0.5 % (0.0-0.8); Eosinophils # 0.2 10*3/uL (0.0-0.87); Eosinophils % 2.6 % (0.00-10.9); Hematocrit 30.3 VOL% (42.0-52.0); Immature Granulocytes % 0.5 %; Immature Granulocytes Absolute 0.03 #; Lymphocytes # 0.8 10*3/uL (1.4-4.0); Mean Corpuscular Volume 93.2 FL (87-102); Mean Platelet Volume 11.3 FL (9.6-12.0); Monocytes % 9.3 % (1.7-12.7); Neutrophils % 74.1 % (38.7-73.9); Platelet Count 155 T/CUMM (130-400); Red Blood Count 3.25 MC/CUMM (3.8-5.5); Red Cell Distribution Width 13.5 % (9.3-17.3); White Blood Count 6.2 T/CUMM (4-12)
[2019-08-17 05:39] LABS: PT Patient Result 10.8 SECS (9.6-12.2); Partial Thromboplastin Time 32.4 SECS (20.8-36.0)
[2019-08-17 05:58] LABS: Albumin 2.7 G/DL (3.4-5.0); Bilirubin,Total 0.4 MG/DL (0.2-1.0); Calcium 7.9 MG/DL (8.5-10.1); Osmolality,Calculated 297.8 MOS/KG (273-304); Total Protein 6.5 G/DL (6.4-8.3)
[2019-08-17] MEDS ORDERED: FUROSEMIDE 40 MG/4 ML VIAL IV ONE (05:58)
[2019-08-17] MEDS: carvediloL 6.25 MG TABLET PO SCH ×2 (09:09→21:01)
[2019-08-17] MEDS: PANTOPRAZOLE 40 MG TABLET PO SCH (09:09)
[2019-08-17] MEDS: APIXABAN 5 MG TABLET PO SCH ×2 (09:09→21:01)
[2019-08-17] MEDS: INSULIN LISPRO 100 UNIT/ML SUBCUT SCH ×4 (09:11→21:01)
[2019-08-17] MEDS ORDERED: ALBUTEROL/IPRATROPIUM 3 ML NEB RESP TX PRN (09:30)
[2019-08-17 11:28] LABS: Apearance,Urine CLEAR (Clear); Bilirubin,Urine Negative (Negative); Blood, Urine Small mg/dL (Negative); Glucose,Urine (UA) Negative (Negative); Ketones,Urine Negative (Negative); Nitrite,Urine Negative (Negative); Protein,Urine 100 MG/DL; RBC,Urine 2 /HPF (0-4); Urine Color Yellow (Yellow); Urine Specific Gravity 1.013 (1.001-1.035); Urine Urobilinogen < 2.0 EU/DL (0.2-1.0)
[2019-08-17] MEDS: ALBUTEROL/IPRATROPIUM 3 ML NEB RESP TX SCH ×2 (13:09→19:05)
[2019-08-17] MEDS: MONTELUKAST 10 MG TABLET PO SCH (13:10)
[2019-08-17] MEDS: cefTRIAXone 1,000 MG in SYRINGE 1 EACH IV SCH (13:10)
[2019-08-18] MEDS: ALBUTEROL/IPRATROPIUM 3 ML NEB RESP TX SCH ×4 (00:21→19:41)
[2019-08-18 06:30] LABS: Basophils % 0.6 % (0.0-0.8); Eosinophils # 0.3 10*3/uL (0.0-0.87); Eosinophils % 6.1 % (0.00-10.9); Hematocrit 30.5 VOL% (42.0-52.0); Hemoglobin 9.8 GM/DL (14.0-18.0); Immature Granulocytes % 0.4 %; Immature Granulocytes Absolute 0.02 #; Lymphocytes # 1.2 10*3/uL (1.4-4.0); Lymphocytes % 21.5 % (21.2-54.2); Mean Corpuscular HGB Conc 32.1 GM/DL (32-36); Mean Corpuscular Volume 93.8 FL (87-102); Mean Platelet Volume 11.3 FL (9.6-12.0); Monocytes % 11.2 % (1.7-12.7); Neutrophils % 60.2 % (38.7-73.9); Platelet Count 151 T/CUMM (130-400); Red Blood Count 3.25 MC/CUMM (3.8-5.5); Red Cell Distribution Width 13.8 % (9.3-17.3); White Blood Count 5.4 T/CUMM (4-12)
[2019-08-18 07:03] LABS: Osmolality,Calculated 289.8 MOS/KG (273-304)
[2019-08-18] MEDS: MONTELUKAST 10 MG TABLET PO SCH (07:59)
[2019-08-18] MEDS: INSULIN LISPRO 100 UNIT/ML SUBCUT SCH ×4 (07:59→21:13)
[2019-08-18] MEDS: PANTOPRAZOLE 40 MG TABLET PO SCH (07:59)
[2019-08-18] MEDS: carvediloL 6.25 MG TABLET PO SCH ×2 (07:59→21:50)
[2019-08-18] MEDS: APIXABAN 5 MG TABLET PO SCH ×2 (07:59→21:12)
[2019-08-18] MEDS: cefTRIAXone 1,000 MG in SYRINGE 1 EACH IV SCH ×2 (08:00→09:58)
[2019-08-18] MEDS ORDERED: FUROSEMIDE 40 MG TABLET PO SCH (10:00)
[2019-08-18] MEDS: SIMVASTATIN 40 MG TABLET PO SCH (21:12)
[2019-08-18] MEDS: cilostazoL 50 MG TABLET PO SCH (21:12)
[2019-08-18] MEDS: MOMETASONE/FORMOTEROL 100-5 INHALER 8.8 GM INH SCH (21:30)
[2019-08-18] MEDS ORDERED: methylPREDNISolone SOD SUC 125 MG/2 ML VIAL IV ONE (23:58)
[2019-08-19 00:45] LABS: ABG Base Excess -2.1 MMOL/L (-2.5-2.5); ABG HCO3 22.3 MMOL/L (20-26); ABG Oxygen Saturation 78.7 % (95-100); ABG PCO2 40.2 MM HG (35-48); ABG PH 7.367 (7.35-7.45); ABG PO2 44.2 MM HG (80-95); ABG TCO2 20.6 MMOL/L (23-27); Allen Test Positive
[2019-08-19] MEDS: ALBUTEROL/IPRATROPIUM 3 ML NEB RESP TX SCH ×2 (02:20→07:35)
[2019-08-19 05:11] LABS: Basophils % 0.2 % (0.0-0.8); Hematocrit 32.4 VOL% (42.0-52.0); Hemoglobin 10.7 GM/DL (14.0-18.0); Immature Granulocytes % 0.5 %; Immature Granulocytes Absolute 0.05 #; Lymphocytes # 0.3 10*3/uL (1.4-4.0); Mean Corpuscular Volume 93.4 FL (87-102); Mean Platelet Volume 10.7 FL (9.6-12.0); Monocytes % 1.9 % (1.7-12.7); Neutrophils % 94.4 % (38.7-73.9); Platelet Count 161 T/CUMM (130-400); Red Blood Count 3.47 MC/CUMM (3.8-5.5); Red Cell Distribution Width 13.5 % (9.3-17.3); White Blood Count 9.6 T/CUMM (4-12)
[2019-08-19 05:36] LABS: Osmolality,Calculated 295.1 MOS/KG (273-304)
[2019-08-19 05:40] LABS: Band Neutrophils 1 % (0-10); Hypochromasia Slight; Lymphocytes 3 % (20-55); Ovalocytes Slight; Platelet Estimate Adequate; Segmented Neutrophils 94 % (50-85); Total Cells Counted 100
[2019-08-19] MEDS: INSULIN LISPRO 100 UNIT/ML SUBCUT SCH ×6 (08:12→21:18)
[2019-08-19] MEDS ORDERED: IPRATROPIUM 500 MCG/2.5 ML NEB RESP TX PRN (09:44)
[2019-08-19] MEDS: cilostazoL 50 MG TABLET PO SCH (10:27)
[2019-08-19] MEDS: SPIRONOLACTONE 25 MG TABLET PO SCH (10:28)
[2019-08-19] MEDS: FUROSEMIDE 40 MG TABLET PO SCH (10:28)
[2019-08-19] MEDS: carvediloL 6.25 MG TABLET PO SCH (10:28)
[2019-08-19] MEDS: PANTOPRAZOLE 40 MG TABLET PO SCH (10:28)
[2019-08-19] MEDS: cefTRIAXone 1,000 MG in SYRINGE 1 EACH IV SCH (10:28)
[2019-08-19] MEDS: MONTELUKAST 10 MG TABLET PO SCH (10:28)
[2019-08-19] MEDS: MOMETASONE/FORMOTEROL 100-5 INHALER 8.8 GM INH SCH (10:29)
[2019-08-19] MEDS: APIXABAN 5 MG TABLET PO SCH (10:29)
[2019-08-19] MEDS: IPRATROPIUM 500 MCG/2.5 ML NEB RESP TX SCH (14:00)
[2019-08-19] MEDS: SIMVASTATIN 40 MG TABLET PO SCH (21:18)
[2019-08-19] MEDS: carvediloL 12.5 MG TABLET PO SCH (21:18)
[2019-08-20] MEDS: IPRATROPIUM 500 MCG/2.5 ML NEB RESP TX SCH ×3 (02:06→14:26)
[2019-08-20 04:22] LABS: Hematocrit 26.9 VOL% (42.0-52.0); Hemoglobin 8.8 GM/DL (14.0-18.0); Immature Granulocytes % 0.4 %; Immature Granulocytes Absolute 0.03 #; Lymphocytes # 0.6 10*3/uL (1.4-4.0); Lymphocytes % 7.1 % (21.2-54.2); Mean Corpuscular HGB Conc 32.7 GM/DL (32-36); Mean Corpuscular Volume 92.1 FL (87-102); Mean Platelet Volume 11.3 FL (9.6-12.0); Neutrophils % 85.5 % (38.7-73.9); Platelet Count 145 T/CUMM (130-400); Red Blood Count 2.92 MC/CUMM (3.8-5.5); Red Cell Distribution Width 13.2 % (9.3-17.3); White Blood Count 7.8 T/CUMM (4-12)
[2019-08-20 04:35] LABS: PT Patient Result 10.9 SECS (9.6-12.2); Partial Thromboplastin Time 33.6 SECS (20.8-36.0)
[2019-08-20 05:00] LABS: Calcium 7.9 MG/DL (8.5-10.1); Osmolality,Calculated 299.4 MOS/KG (273-304)
[2019-08-20] MEDS ORDERED: MIDAZOLAM 2 MG/2 ML VIAL ONE (07:47)
[2019-08-20] MEDS ORDERED: diphenhydrAMINE 50 MG/1 ML VIAL IM ONE (08:00)
[2019-08-20] MEDS ORDERED: BENZONATATE 100 MG CAPSULE PO ONE (08:00)
[2019-08-20] MEDS ORDERED: MEPERIDINE 25 MG/1 ML VIAL IM ONE (08:00)
[2019-08-20] MEDS: SPIRONOLACTONE 25 MG TABLET PO SCH (08:22)
[2019-08-20] MEDS: carvediloL 12.5 MG TABLET PO SCH ×2 (08:23→20:44)
[2019-08-20] MEDS: INSULIN LISPRO 100 UNIT/ML SUBCUT SCH ×4 (08:26→20:44)
[2019-08-20] MEDS ORDERED: LIDOCAINE 2% VISCOUS 100 ML BOTTLE SWISH/SPIT ONE (08:30)
[2019-08-20] MEDS ORDERED: LIDOCAINE 2% 20 ML VIAL RESP TX ONE (08:30)
[2019-08-20] MEDS ORDERED: LIDOCAINE 1% 20 ML VIAL MISC INJ ONE (08:30)
[2019-08-20] MEDS ORDERED: FUROSEMIDE 40 MG/4 ML VIAL IV ONE (10:24)
[2019-08-20] MEDS: FUROSEMIDE 40 MG TABLET PO SCH (10:51)
[2019-08-20] MEDS: PANTOPRAZOLE 40 MG TABLET PO SCH (11:21)
[2019-08-20] MEDS: MONTELUKAST 10 MG TABLET PO SCH (11:21)
[2019-08-20] MEDS: cefTRIAXone 1,000 MG in SYRINGE 1 EACH IV SCH (11:25)
[2019-08-20] MEDS ORDERED: DEXTROSE 50% 25 GM/50 ML VIAL IV PRN (11:44)
[2019-08-20] MEDS: amLODIPine 5 MG TABLET PO SCH (13:43)
[2019-08-20] MEDS: APIXABAN 2.5 MG TABLET PO SCH (20:44)
[2019-08-20] MEDS: ATORVASTATIN 20 MG TABLET PO SCH (20:44)
[2019-08-21] MEDS: IPRATROPIUM 500 MCG/2.5 ML NEB RESP TX SCH ×3 (00:24→15:05)
[2019-08-21 05:30] LABS: Basophils % 0.3 % (0.0-0.8); Eosinophils # 0.1 10*3/uL (0.0-0.87); Eosinophils % 1.7 % (0.00-10.9); Hematocrit 29.6 VOL% (42.0-52.0); Hemoglobin 9.5 GM/DL (14.0-18.0); Immature Granulocytes % 0.5 %; Immature Granulocytes Absolute 0.04 #; Lymphocytes # 1.3 10*3/uL (1.4-4.0); Lymphocytes % 17.9 % (21.2-54.2); Mean Corpuscular HGB Conc 32.1 GM/DL (32-36); Mean Corpuscular Volume 94.3 FL (87-102); Mean Platelet Volume 10.7 FL (9.6-12.0); Monocytes % 10.7 % (1.7-12.7); Neutrophils % 68.9 % (38.7-73.9); Platelet Count 151 T/CUMM (130-400); Red Blood Count 3.14 MC/CUMM (3.8-5.5); Red Cell Distribution Width 13.7 % (9.3-17.3); White Blood Count 7.5 T/CUMM (4-12)
[2019-08-21 05:48] LABS: Calcium 7.7 MG/DL (8.5-10.1); Osmolality,Calculated 303.8 MOS/KG (273-304)
[2019-08-21] MEDS: MONTELUKAST 10 MG TABLET PO SCH (08:55)
[2019-08-21] MEDS: APIXABAN 2.5 MG TABLET PO SCH ×2 (08:55→20:52)
[2019-08-21] MEDS: carvediloL 12.5 MG TABLET PO SCH (08:56)
[2019-08-21] MEDS: FUROSEMIDE 40 MG TABLET PO SCH (08:56)
[2019-08-21] MEDS: PANTOPRAZOLE 40 MG TABLET PO SCH (08:56)
[2019-08-21] MEDS: SPIRONOLACTONE 25 MG TABLET PO SCH (08:56)
[2019-08-21] MEDS: amLODIPine 5 MG TABLET PO SCH (08:56)
[2019-08-21] MEDS: INSULIN LISPRO 100 UNIT/ML SUBCUT SCH ×4 (08:58→20:52)
[2019-08-21] MEDS: cefTRIAXone 1,000 MG in SYRINGE 1 EACH IV SCH (09:22)
[2019-08-21] MEDS: ACETAMINOPHEN 325 MG TABLET PO PRN (18:35)
[2019-08-21] MEDS: carvediloL 25 MG TABLET PO SCH (20:52)
[2019-08-21] MEDS: ATORVASTATIN 20 MG TABLET PO SCH (20:52)
[2019-08-22] MEDS: IPRATROPIUM 500 MCG/2.5 ML NEB RESP TX SCH ×3 (00:52→15:00)
[2019-08-22] MEDS: MONTELUKAST 10 MG TABLET PO SCH (08:31)
[2019-08-22] MEDS: APIXABAN 2.5 MG TABLET PO SCH ×2 (08:31→20:40)
[2019-08-22] MEDS: FUROSEMIDE 40 MG TABLET PO SCH (08:31)
[2019-08-22] MEDS: carvediloL 25 MG TABLET PO SCH ×2 (08:32→20:40)
[2019-08-22] MEDS: SPIRONOLACTONE 25 MG TABLET PO SCH (08:32)
[2019-08-22] MEDS: amLODIPine 5 MG TABLET PO SCH (08:32)
[2019-08-22] MEDS: PANTOPRAZOLE 40 MG TABLET PO SCH (08:32)
[2019-08-22] MEDS: INSULIN LISPRO 100 UNIT/ML SUBCUT SCH ×4 (08:34→20:40)
[2019-08-22] MEDS: cefTRIAXone 1,000 MG in SYRINGE 1 EACH IV SCH (08:35)
[2019-08-22] MEDS: ACETAMINOPHEN 325 MG TABLET PO PRN (19:11)
[2019-08-22] MEDS: ATORVASTATIN 20 MG TABLET PO SCH (20:40)
[2019-08-22] MEDS ORDERED: BISACODYL 5 MG TABLET PO PRN (21:06)
[2019-08-23] MEDS: IPRATROPIUM 500 MCG/2.5 ML NEB RESP TX SCH ×2 (00:27→07:12)
[2019-08-23] MEDS: ACETAMINOPHEN 325 MG TABLET PO PRN (01:37)
[2019-08-23] MEDS ORDERED: MAGNESIUM HYDROXIDE SUSP 30 ML UDCUP PO ONE (05:01)
[2019-08-23] MEDS: INSULIN LISPRO 100 UNIT/ML SUBCUT SCH ×2 (08:31→11:45)
[2019-08-23] MEDS: PANTOPRAZOLE 40 MG TABLET PO SCH (09:27)
[2019-08-23] MEDS: APIXABAN 2.5 MG TABLET PO SCH (09:27)
[2019-08-23] MEDS: carvediloL 25 MG TABLET PO SCH (09:27)
[2019-08-23] MEDS: SPIRONOLACTONE 25 MG TABLET PO SCH (09:27)
[2019-08-23] MEDS: FUROSEMIDE 40 MG TABLET PO SCH (09:27)
[2019-08-23] MEDS: amLODIPine 5 MG TABLET PO SCH (09:27)
[2019-08-23] MEDS: MONTELUKAST 10 MG TABLET PO SCH (09:27)
[2019-08-23] MEDS: cefTRIAXone 1,000 MG in SYRINGE 1 EACH IV SCH (09:28)
[2019-08-23 11:44] VITALS: BP 154/69
[2019-08-23] MEDS ORDERED: amLODIPine 5 MG TABLET PO SCH (21:00)
== END 2019-08-23 16:11 | disposition home or self-care (01) | DRG 682 ==
LOC: N.3E 23:53 → SUATTDRO 23:53
PROVIDERS: ADMIT Internal Medicine; ATTEND Internal Medicine

== ENCOUNTER 2020-04-04 13:47 | Inpatient (IN) ==
[2020-04-04 17:53] LABS: Basophils % 0.1 % (0.0-0.8); Hematocrit 42.9 VOL% (42.0-52.0); Hemoglobin 13.9 GM/DL (14.0-18.0); Immature Granulocytes % 0.5 %; Immature Granulocytes Absolute 0.06 #; Lymphocytes # 0.4 10*3/uL (1.4-4.0); Lymphocytes % 2.8 % (21.2-54.2); Mean Corpuscular HGB Conc 32.4 GM/DL (32-36); Mean Corpuscular Volume 91.9 FL (87-102); Mean Platelet Volume 10.5 FL (9.6-12.0); Monocytes % 2.1 % (1.7-12.7); Neutrophils % 94.5 % (38.7-73.9); Platelet Count 209 T/CUMM (130-400); Red Blood Count 4.67 MC/CUMM (3.8-5.5); Red Cell Distribution Width 13.7 % (9.3-17.3); White Blood Count 12.3 T/CUMM (4-12)
[2020-04-04] MEDS ORDERED: GLUCAGON 1 MG VIAL IM PRN (18:01)
[2020-04-04] MEDS ORDERED: DEXTROSE 10% 250 ML BAG IV PRN (18:01)
[2020-04-04 18:06] LABS: Albumin 3.2 G/DL (3.4-5.0); Bilirubin,Total 0.6 MG/DL (0.2-1.0); Calcium 8.6 MG/DL (8.5-10.1); Total Protein 8.4 G/DL (6.4-8.3)
[2020-04-04] MEDS ORDERED: ONDANSETRON 4 MG/2 ML VIAL IV PRN (18:06)
[2020-04-04 18:22] LABS: Lymphocytes 8 % (20-55); Platelet Estimate Normal; Segmented Neutrophils 91 % (50-85); Total Cells Counted 100
[2020-04-04 18:33] LABS: INR 1.1; PT Patient Result 11.5 SECS (9.8-11.9)
[2020-04-04 19:26] LABS: Sedimentation Rate-Westergren 50 MM/HR (0-20)
[2020-04-04] MEDS: cilostazoL 50 MG TABLET PO SCH (20:15)
[2020-04-04] MEDS: AZITHROMYCIN INJ 500 MG in SODIUM CHLORIDE 0.9% 250 ML IV SCH (20:15)
[2020-04-04] MEDS: TRAVOPROST 0.004% OPH SOLN 2.5 ML BOTTLE RIGHT EYE SCH (20:15)
[2020-04-04] MEDS: cefTRIAXone 1,000 MG in SYRINGE 1 EACH IV SCH (20:15)
[2020-04-04 21:14] LABS: CKMB % 3.3 %
[2020-04-04 21:15] LABS: Troponin I 0.833 NG/ML (0.00-0.045)
[2020-04-05 00:19] LABS: CKMB % 3.5 %
[2020-04-05 00:20] LABS: Troponin I 0.86 NG/ML (0.00-0.045)
[2020-04-05 04:47] LABS: Hematocrit 37.3 VOL% (42.0-52.0); Immature Granulocytes % 0.5 %; Immature Granulocytes Absolute 0.05 #; Lymphocytes # 0.5 10*3/uL (1.4-4.0); Mean Corpuscular HGB Conc 32.2 GM/DL (32-36); Mean Corpuscular Volume 91.9 FL (87-102); Mean Platelet Volume 10.4 FL (9.6-12.0); Monocytes % 4.7 % (1.7-12.7); Neutrophils % 89.8 % (38.7-73.9); Platelet Count 199 T/CUMM (130-400); Red Blood Count 4.06 MC/CUMM (3.8-5.5); Red Cell Distribution Width 13.6 % (9.3-17.3); White Blood Count 10.4 T/CUMM (4-12)
[2020-04-05 05:13] LABS: Albumin 2.8 G/DL (3.4-5.0); Bilirubin,Total 0.4 MG/DL (0.2-1.0); Calcium 8.3 MG/DL (8.5-10.1); Osmolality,Calculated 293.8 MOS/KG (273-304); Risk Ratio 5.29; Thyroid Stimulating Hormone 0.904 uIU/ml (0.358-3.74); Total Protein 7.2 G/DL (6.4-8.3); VLDL CHOLESTEROL 12.8 MG/DL
[2020-04-05] MEDS: INSULIN REGULAR 100 UNIT/ML SUBCUT SCH ×3 (06:15→18:37)
[2020-04-05] MEDS: SPIRONOLACTONE 25 MG TABLET PO SCH (08:25)
[2020-04-05] MEDS: MELOXICAM 7.5 MG TABLET PO SCH (08:25)
[2020-04-05] MEDS: PANTOPRAZOLE 40 MG TABLET PO SCH (08:25)
[2020-04-05] MEDS: CETIRIZINE 10 MG TABLET PO SCH (08:25)
[2020-04-05] MEDS: cilostazoL 50 MG TABLET PO SCH ×2 (08:25→20:57)
[2020-04-05] MEDS: FUROSEMIDE 40 MG/4 ML VIAL IV SCH (08:25)
[2020-04-05] MEDS: MONTELUKAST 10 MG TABLET PO SCH (08:25)
[2020-04-05] MEDS: LOSARTAN 25 MG TABLET PO SCH (08:25)
[2020-04-05] MEDS: NICOTINE 21 MG/24 HR PATCH TRANSDERM SCH (09:44)
[2020-04-05] MEDS ORDERED: BISACODYL 5 MG TABLET PO PRN (11:17)
[2020-04-05] MEDS: cefTRIAXone 1,000 MG in SYRINGE 1 EACH IV SCH (20:57)
[2020-04-05] MEDS: AZITHROMYCIN INJ 500 MG in SODIUM CHLORIDE 0.9% 250 ML IV SCH (20:58)
[2020-04-05] MEDS: TRAVOPROST 0.004% OPH SOLN 2.5 ML BOTTLE RIGHT EYE SCH (20:58)
[2020-04-06] MEDS: INSULIN REGULAR 100 UNIT/ML SUBCUT SCH ×4 (00:11→17:29)
[2020-04-06 07:30] LABS: Basophils % 0.2 % (0.0-0.8); Eosinophils # 0.1 10*3/uL (0.0-0.87); Eosinophils % 1.4 % (0.00-10.9); Hematocrit 35.8 VOL% (42.0-52.0); Hemoglobin 11.6 GM/DL (14.0-18.0); Immature Granulocytes % 0.7 %; Immature Granulocytes Absolute 0.07 #; Lymphocytes # 1.1 10*3/uL (1.4-4.0); Mean Corpuscular HGB Conc 32.4 GM/DL (32-36); Mean Corpuscular Volume 91.6 FL (87-102); Mean Platelet Volume 10.4 FL (9.6-12.0); Monocytes % 9.8 % (1.7-12.7); Neutrophils % 76.9 % (38.7-73.9); Platelet Count 205 T/CUMM (130-400); Red Blood Count 3.91 MC/CUMM (3.8-5.5); White Blood Count 9.8 T/CUMM (4-12)
[2020-04-06 07:42] LABS: Albumin 2.9 G/DL (3.4-5.0); Bilirubin,Total 1.2 MG/DL (0.2-1.0); Calcium 8.3 MG/DL (8.5-10.1); Osmolality,Calculated 299.1 MOS/KG (273-304); Total Protein 7.2 G/DL (6.4-8.3)
[2020-04-06] MEDS: AZITHROMYCIN 250 MG TABLET PO SCH (09:14)
[2020-04-06] MEDS: CETIRIZINE 10 MG TABLET PO SCH (09:14)
[2020-04-06] MEDS: FUROSEMIDE 40 MG/4 ML VIAL IV SCH (09:14)
[2020-04-06] MEDS: MONTELUKAST 10 MG TABLET PO SCH ×3 (09:14→21:20)
[2020-04-06] MEDS: PANTOPRAZOLE 40 MG TABLET PO SCH (09:14)
[2020-04-06] MEDS: LOSARTAN 25 MG TABLET PO SCH (09:14)
[2020-04-06] MEDS: MELOXICAM 7.5 MG TABLET PO SCH (09:14)
[2020-04-06] MEDS: cilostazoL 50 MG TABLET PO SCH ×2 (09:14→21:20)
[2020-04-06] MEDS: NICOTINE 21 MG/24 HR PATCH TRANSDERM SCH (09:14)
[2020-04-06] MEDS: SPIRONOLACTONE 25 MG TABLET PO SCH (09:14)
[2020-04-06] MEDS: APIXABAN 5 MG TABLET PO SCH ×2 (09:14→21:20)
[2020-04-06] MEDS: TRAVOPROST 0.004% OPH SOLN 2.5 ML BOTTLE RIGHT EYE SCH (21:20)
[2020-04-06] MEDS: cefTRIAXone 1,000 MG in SYRINGE 1 EACH IV SCH (21:20)
[2020-04-06] MEDS ORDERED: APIXABAN 5 MG TABLET PO SCH (22:03)
[2020-04-07] MEDS: INSULIN REGULAR 100 UNIT/ML SUBCUT SCH ×4 (00:19→17:25)
[2020-04-07 06:18] LABS: Basophils % 0.3 % (0.0-0.8); Eosinophils # 0.3 10*3/uL (0.0-0.87); Eosinophils % 4.8 % (0.00-10.9); Hematocrit 32.8 VOL% (42.0-52.0); Hemoglobin 10.4 GM/DL (14.0-18.0); Immature Granulocytes % 0.2 %; Immature Granulocytes Absolute 0.01 #; Lymphocytes # 1.1 10*3/uL (1.4-4.0); Lymphocytes % 16.6 % (21.2-54.2); Mean Corpuscular HGB Conc 31.7 GM/DL (32-36); Mean Corpuscular Volume 91.6 FL (87-102); Mean Platelet Volume 10.5 FL (9.6-12.0); Monocytes % 10.1 % (1.7-12.7); Platelet Count 182 T/CUMM (130-400); Red Blood Count 3.58 MC/CUMM (3.8-5.5); Red Cell Distribution Width 13.9 % (9.3-17.3); White Blood Count 6.5 T/CUMM (4-12)
[2020-04-07 07:08] LABS: Calcium 7.8 MG/DL (8.5-10.1)
[2020-04-07] MEDS: MELOXICAM 7.5 MG TABLET PO SCH (09:01)
[2020-04-07] MEDS: APIXABAN 5 MG TABLET PO SCH ×2 (09:01→20:20)
[2020-04-07] MEDS: cilostazoL 50 MG TABLET PO SCH ×2 (09:01→20:20)
[2020-04-07] MEDS: LOSARTAN 25 MG TABLET PO SCH (09:01)
[2020-04-07] MEDS: MONTELUKAST 10 MG TABLET PO SCH ×2 (09:01→20:20)
[2020-04-07] MEDS: SPIRONOLACTONE 25 MG TABLET PO SCH (09:01)
[2020-04-07] MEDS: FUROSEMIDE 40 MG/4 ML VIAL IV SCH (09:01)
[2020-04-07] MEDS: PANTOPRAZOLE 40 MG TABLET PO SCH (09:01)
[2020-04-07] MEDS: CETIRIZINE 10 MG TABLET PO SCH (09:01)
[2020-04-07] MEDS: AZITHROMYCIN 250 MG TABLET PO SCH (09:01)
[2020-04-07] MEDS: NICOTINE 21 MG/24 HR PATCH TRANSDERM SCH (09:02)
[2020-04-07] MEDS: cefTRIAXone 1,000 MG in SYRINGE 1 EACH IV SCH (20:20)
[2020-04-07] MEDS: TRAVOPROST 0.004% OPH SOLN 2.5 ML BOTTLE RIGHT EYE SCH (20:20)
[2020-04-08] MEDS: INSULIN REGULAR 100 UNIT/ML SUBCUT SCH ×4 (00:30→19:27)
[2020-04-08] MEDS: MELOXICAM 7.5 MG TABLET PO SCH (09:09)
[2020-04-08] MEDS: APIXABAN 5 MG TABLET PO SCH ×2 (09:09→23:27)
[2020-04-08] MEDS: MONTELUKAST 10 MG TABLET PO SCH ×2 (09:09→23:27)
[2020-04-08] MEDS: LOSARTAN 25 MG TABLET PO SCH (09:09)
[2020-04-08] MEDS: FUROSEMIDE 40 MG/4 ML VIAL IV SCH (09:09)
[2020-04-08] MEDS: SPIRONOLACTONE 25 MG TABLET PO SCH (09:09)
[2020-04-08] MEDS: NICOTINE 21 MG/24 HR PATCH TRANSDERM SCH (09:09)
[2020-04-08] MEDS: CETIRIZINE 10 MG TABLET PO SCH (09:10)
[2020-04-08] MEDS: PANTOPRAZOLE 40 MG TABLET PO SCH (09:10)
[2020-04-08] MEDS: cilostazoL 50 MG TABLET PO SCH ×2 (09:10→23:27)
[2020-04-08] MEDS: AZITHROMYCIN 250 MG TABLET PO SCH (09:10)
[2020-04-08] MEDS: cefTRIAXone 1,000 MG in SYRINGE 1 EACH IV SCH (23:26)
[2020-04-09] MEDS: TRAVOPROST 0.004% OPH SOLN 2.5 ML BOTTLE RIGHT EYE SCH (00:34)
[2020-04-09] MEDS: INSULIN REGULAR 100 UNIT/ML SUBCUT SCH ×3 (00:35→14:48)
[2020-04-09] MEDS: FUROSEMIDE 40 MG/4 ML VIAL IV SCH (11:04)
[2020-04-09] MEDS: SPIRONOLACTONE 25 MG TABLET PO SCH (11:04)
[2020-04-09] MEDS: LOSARTAN 25 MG TABLET PO SCH (11:04)
[2020-04-09] MEDS: MELOXICAM 7.5 MG TABLET PO SCH (11:04)
[2020-04-09] MEDS: APIXABAN 5 MG TABLET PO SCH (11:04)
[2020-04-09] MEDS: cilostazoL 50 MG TABLET PO SCH (11:05)
[2020-04-09] MEDS: PANTOPRAZOLE 40 MG TABLET PO SCH (11:05)
[2020-04-09] MEDS: MONTELUKAST 10 MG TABLET PO SCH (11:05)
[2020-04-09] MEDS: NICOTINE 21 MG/24 HR PATCH TRANSDERM SCH (11:05)
[2020-04-09] MEDS: AZITHROMYCIN 250 MG TABLET PO SCH (11:05)
[2020-04-09] MEDS: CETIRIZINE 10 MG TABLET PO SCH (11:06)
[2020-04-09 14:45] VITALS: BP 153/71
== END 2020-04-09 15:15 | disposition home or self-care (01) | DRG 291 ==
LOC: SUATTDRO 17:09 → N.ICU 17:09 → N.2E 04-05 14:04
PROVIDERS: ADMIT Internal Medicine; ATTEND Internal Medicine